=== PATIENT | female | born 1970 | race Caucasian/White ===

== ENCOUNTER 2019-06-19 07:37 | Day surgery (SDC) | payer BC ==
[~2019-06-19 07:37] MED LIST: Lactated Ringers 1,000 ML IV SCH; Lidocaine 1%/Sod Bicarbonate in NS 8.4% 1 ML Syringe IDERM PRN; Sodium Chloride 0.9% 10 ML Syringe FLUSH PRN
--- NOTE | 2019-06-19 08:27 | PCM.PREANE ---
Preanesthetic Assessment - Procedure Proposed Procedure: Colonoscopy - Anesthesia/Transfusion/Family Hx Anesthesia History: Prior Anesthesia Without Reaction Family History of Anesthesia Reaction: No Transfusion History: No Prior Transfusion(s) - Review of Systems General: No Symptoms Pulmonary: No Symptoms Cardiovascular: No Symptoms Gastrointestinal: No Symptoms Neurological: No Symptoms Other: Reports: None - Physical Assessment NPO Status Date: 06/18/19 NPO Status Time: 00:00 Height: 1.63 m Weight: 74.1 kg ASA Class: 1 Mental Status: Alert & Oriented x3 Airway Class: Mallampati = 1 Dentition: Reports: Normal Dentition Thyro-Mental Finger Breadths: 3 Mouth Opening Finger Breadths: 3 ROM/Head Extension: Full Lungs: Clear to Auscultation, Normal Respiratory Effort Cardiovascular: Regular Rate, Regular Rhythm - Allergies Allergies/Adverse Reactions: Allergies Allergy/AdvReac Type Severity Reaction Status Date / Time No Known Allergies Allergy Verified 06/16/19 10:18 - Blood Blood Available: No Product(s) Available: None - Anesthesia Plan Pre-Op Medication Ordered: None - Acknowledgements Anesthesia Type Planned: MAC Pt an Appropriate Candidate for the Planned Anesthesia: Yes Alternatives and Risks of Anesthesia Discussed w Pt/Guardian: Yes Pt/Guardian Understands and Agrees with Anesthesia Plan: Yes PreAnesthesia Questionnaire HEENT History: Reports: Impaired Vision Cardiovascular History: Reports: Other (See Below) Other Cardiovascular History: peripheral vascular insufficiency Respiratory History: Reports: None Gastrointestinal History: Reports: Other (See Below) Other Gastrointestinal History: anal fissure, colitis, constipation Genitourinary History: Reports: Urinary Incontinence 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 (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) Other OB/BYN History: perimenopausal vasomotor symptoms Musculoskeletal History: Reports: None Neurological History: Reports: None Psychiatric History: Reports: Anxiety Endocrine/Metabolic History: Reports: None Hematologic History: Reports: None Immunologic History: Reports: None Oncologic (Cancer) History: Reports: None Dermatologic History: Reports: None - Past Surgical History Head Surgeries/Procedures: Reports: None HEENT Surgical History: Reports: LASIK, Naso-Sinus Surgery Cardiovascular Surgical History: Reports: Varicose Respiratory Surgical History: Reports: None GI Surgical History: Reports: Cholecystectomy, Colonoscopy Female Surgical History: Reports: Breast Reduction, Hysterectomy, Tubal Ligation Male Surgical History: Reports: None Endocrine Surgical History: Reports: None Neurological Surgical History: Reports: None Musculoskeletal Surgical History: Reports: None Oncologic Surgical History: Reports: None Dermatological Surgical History: Reports: None - SUBSTANCE USE Smoking Status *Q: Never Smoker Tobacco Use Within Last Twelve Months: No Second Hand Smoke Exposure: No Days Per Week of Alcohol Use: 0 Number of Drinks Per Day: 0 Total Drinks Per Week: 0 Recreational Drug Use History: No - HOME MEDS Home Medications: Home Meds Docusate Sodium [Colace] 200 mg PO DAILY 06/16/19 [History] Fish Oil/[place]-3 Fatty Acids [Fish Oil 1,000 MG] 1 gm PO DAILY 06/16/19 [History ] Lactobacillus Combination No.4 [Probiotic] 1 cap PO DAILY 06/16/19 [History] Lifitegrast [Xiidra] 1 drop EYEBOTH BID 06/16/19 [History] Magnesium Citrate 300 mg PO DAILY 06/16/19 [History] Multivit-Min/FA/Lycopen/Lutein [Certavite Sr-Antioxidant Tab] 1 tab PO DAILY [History] Tolterodine Tartrate [Tolterodine Tartrate ER] 4 mg PO DAILY 06/16/19 [History] - CURRENT (IN HOUSE) MEDS Current Meds: Current Medications Lactated Ringer's (Ringers, Lactated) 1,000 mls @ 125 mls/hr IV ASDIRECTED CELIO Stop: 06/19/19 23:00 Lidocaine/Sodium Bicarbonate (Buffered Lidocaine 1% In Ns 8.4%) 0.25 ml IDERM ONETIME PRN PRN Reason: Prior to IV Start Stop: 06/19/19 18:00 Sodium Chloride (Saline Flush) 10 ml FLUSH ASDIRECTED PRN PRN Reason: Keep Vein Open Stop: 06/19/19 18:00
[2019-06-19] MEDS ORDERED: Propofol 200 MG/20 ML SDV ONE ×2 (09:05→09:06)
[2019-06-19] MEDS ORDERED: Midazolam 1 MG/ML 2 ML SDV ONE (09:05)
--- NOTE | 2019-06-19 10:00 | PCM48HPAN ---
Post Anesthesia Note - EVALUATION WITHIN 48HRS OF ANESTHETIC Vital Signs in Normal Range: Yes Patient Participated in Evaluation: Yes Respiratory Function Stable: Yes Airway Patent: Yes Cardiovascular Function Stable: Yes Hydration Status Stable: Yes Pain Control Satisfactory: Yes Nausea and Vomiting Control Satisfactory: Yes Mental Status Recovered: Yes Vital Signs: Last Vital Signs Temp 36.8 C 06/19/19 08:15 Pulse 53 L 06/19/19 08:15 Resp 16 06/19/19 08:15 BP 118/81 06/19/19 08:15 Pulse Ox 100 06/19/19 08:15
--- NOTE | 2019-06-19 12:25 | PROC ---
DATE OF OPERATION: 06/19/2019 SURGEON: Dima Wang MD PREOPERATIVE DIAGNOSIS: Need for screening colonoscopy. POSTOPERATIVE DIAGNOSIS: Normal colon. OPERATION PERFORMED: Colonoscopy. ANESTHESIA: Monitored anesthesia care. COMPLICATIONS: None. FINDINGS: Normal colon. INDICATION AND CONSENT: Ms. Napier is a 49-year-old female who presented to clinic for evaluation for screening colonoscopy based on age. She has average risk for colon cancer. She has a maternal grandfather who had colon cancer above age 60, so due to her age, we offered her a screening colonoscopy. The patient agreed to proceed with the procedure. We discussed risks, benefits, and alternatives. Risks discussed include but not limited to perforation and bleeding. The patient understood and agreed to proceed with procedure. Informed consent was obtained. DESCRIPTION OF PROCEDURE: The patient was taken to the procedure room, placed in left lateral decubitus position. Following induction of monitored anesthesia care, time-out was performed and colonoscopy was begun. We began with performing a perianal exam. There were some skin tags, but no fissures, no hemorrhoids. Then, the digital rectal exam was performed which was likewise normal. Then, a colonoscopy was inserted and taken all the way to the cecum. The appendiceal orifice as well as the ileocecal valve were photographed. Then, the scope was slowly and carefully withdrawn examining the entirety of the colonic wall. Prep was excellent in this case and we examined the entirety of the colonic wall. There were no lesions or polyps. There was no diverticulosis. Upon retroflexion of the rectum, there were no significant internal hemorrhoids. Then, air was suctioned from the colon and the colonoscope was withdrawn. There were no immediate complications. The patient will follow up with her primary care. Recommendation is for her to undergo another screening colonoscopy in 10 years based on this exam. MMODAL /[id number] ROBB
== END 2019-06-19 11:00 | disposition home or self-care (01) ==
LOC: JD.SDS 07:37
PROVIDERS: ATTEND Surgery
DX: Z12.11 Encounter for screening for malignant neoplasm of colon (principal); K64.4 Residual hemorrhoidal skin tags; Z80.0 Family history of malignant neoplasm of digestive organs; Z90.49 Acquired absence of other specified parts of digestive tract
CPT/HCPCS: 45378; J2250; J2704; J7120; 00812

== ENCOUNTER 2019-11-24 08:35 | Day surgery (SDC) | payer BC ==
--- NOTE | 2019-11-24 09:02 | PCM.PREANE ---
Preanesthetic Assessment - Anesthesia/Transfusion/Family Hx Anesthesia History: Prior Anesthesia Without Reaction Family History of Anesthesia Reaction: No Transfusion History: No Prior Transfusion(s) Intubation History: Unknown - Review of Systems General: No Symptoms Pulmonary: No Symptoms (Former smoker: quit 18 years ago.) Cardiovascular: No Symptoms, Chest Pain (tightness with anxiety) Gastrointestinal: No Symptoms, Constipation Neurological: No Symptoms (Vertigo once ten years ago. (No history of PONV)) Other: Reports: Easy Bruising, Sinus Problem (rhinitis- environmental), Depression, Anxiety - Physical Assessment NPO Status Date: 11/23/19 NPO Status Time: 22:30 Vital Signs: HR: 50 BP: 125/77 Resp: 16 Temp: 98.9 Sat: 100% Height: 1.63 m Weight: 77 kg ASA Class: 1 Mental Status: Alert & Oriented x3 Airway Class: Mallampati = 2 Dentition: Reports: Normal Dentition, [place](s), [place] Thyro-Mental Finger Breadths: 3 Mouth Opening Finger Breadths: 3 ROM/Head Extension: Full Lungs: Clear to Auscultation, Normal Respiratory Effort Cardiovascular: Regular Rate, Regular Rhythm, No Murmurs - Lab Values: Laboratory Last Values WBC Cancelled 11/21/19 14:43 Corrected WBC Cancelled 11/21/19 14:43 RBC Cancelled 11/21/19 14:43 Hgb Cancelled 11/21/19 14:43 Hct Cancelled 11/21/19 14:43 MCV Cancelled 11/21/19 14:43 MCH Cancelled 11/21/19 14:43 MCHC Cancelled 11/21/19 14:43 RDW Std Deviation Cancelled 11/21/19 14:43 Plt Count Cancelled 11/21/19 14:43 MPV Cancelled 11/21/19 14:43 Neut % (Auto) Cancelled 11/21/19 14:43 Lymph % (Auto) Cancelled 11/21/19 14:43 [place] % (Auto) Cancelled 11/21/19 14:43 Eos % (Auto) Cancelled 11/21/19 14:43 Baso % (Auto) Cancelled 11/21/19 14:43 Neut # (Auto) Cancelled 11/21/19 14:43 Lymph # (Auto) Cancelled 11/21/19 14:43 [place] # (Auto) Cancelled 11/21/19 14:43 Eos # (Auto) Cancelled 11/21/19 14:43 Baso # (Auto) Cancelled 11/21/19 14:43 Manual Slide Review Cancelled 11/21/19 14:43 Urine Color Cancelled 11/21/19 14:43 Urine Appearance Cancelled 11/21/19 14:43 Urine pH Cancelled 11/21/19 14:43 Ur Specific [place] Cancelled 11/21/19 14:43 Urine Protein Cancelled 11/21/19 14:43 Urine Glucose (UA) Cancelled 11/21/19 14:43 Urine Ketones Cancelled 11/21/19 14:43 Urine Occult Blood Cancelled 11/21/19 14:43 Urine Nitrite Cancelled 11/21/19 14:43 Urine Bilirubin Cancelled 11/21/19 14:43 Urine Urobilinogen Cancelled 11/21/19 14:43 Ur Leukocyte Esterase Cancelled 11/21/19 14:43 SARS Virus RNA (PCR) Cancelled 11/22/19 16:37 All labs reviewed and noted and within acceptable ranges to proceed with scheduled procedure. - Allergies Allergies/Adverse Reactions: Allergies Allergy/AdvReac Type Severity Reaction Status Date / Time No Known Allergies Allergy Verified 06/16/19 10:18 - Anesthesia Plan Pre-Op Medication Ordered: None - Acknowledgements Anesthesia Type Planned: General Anesthesia Pt an Appropriate Candidate for the Planned Anesthesia: Yes Alternatives and Risks of Anesthesia Discussed w Pt/Guardian: Yes Pt/Guardian Understands and Agrees with Anesthesia Plan: Yes PreAnesthesia Questionnaire HEENT History: Reports: Impaired Vision Cardiovascular History: Reports: Other (See Below) Other Cardiovascular History: peripheral vascular insufficiency Respiratory History: Reports: None Gastrointestinal History: Reports: Other (See Below) Other Gastrointestinal History: anal fissure, colitis, constipation Genitourinary History: Reports: Urinary Incontinence 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) Other OB/BYN History: perimenopausal vasomotor symptoms Musculoskeletal History: Reports: None Neurological History: Reports: None Psychiatric History: Reports: Anxiety Endocrine/Metabolic History: Reports: None Hematologic History: Reports: None Immunologic History: Reports: None Oncologic (Cancer) History: Reports: None Dermatologic History: Reports: None - Past Surgical History Head Surgeries/Procedures: Reports: None HEENT Surgical History: Reports: LASIK, Naso-Sinus Surgery Cardiovascular Surgical History: Reports: Varicose Respiratory Surgical History: Reports: None GI Surgical History: Reports: Cholecystectomy, Colonoscopy Female Surgical History: Reports: Breast Reduction, Hysterectomy, Tubal Ligation Male Surgical History: Reports: None Endocrine Surgical History: Reports: None Neurological Surgical History: Reports: None Musculoskeletal Surgical History: Reports: None Oncologic Surgical History: Reports: None Dermatological Surgical History: Reports: None - HOME MEDS Home Medications: Home Meds Docusate Sodium [Colace] 200 mg PO DAILY 06/16/19 [History] Fish Oil/[place]-3 Fatty Acids [Fish Oil 1,000 MG] 1 gm PO DAILY 06/16/19 [History ] Lactobacillus Combination No.4 [Probiotic] 1 cap PO DAILY 06/16/19 [History] Lifitegrast [Xiidra] 1 drop EYEBOTH BID 06/16/19 [History] Magnesium Citrate 300 mg PO DAILY 06/16/19 [History] Multivit-Min/FA/Lycopen/Lutein [Certavite Sr-Antioxidant Tab] 1 tab PO DAILY [History] Tolterodine Tartrate [Tolterodine Tartrate ER] 4 mg PO DAILY 06/16/19 [History] - CURRENT (IN HOUSE) MEDS Current Meds: Current Medications Lactated Ringer's (Ringers, Lactated) 1,000 mls @ 125 mls/hr IV ASDIRECTED CELIO Stop: 11/24/19 23:00 Lidocaine/Sodium Bicarbonate (Buffered Lidocaine 1% In Ns 8.4%) 0.25 ml IDERM ONETIME PRN PRN Reason: Prior to IV Start Stop: 11/24/19 18:00 Sodium Chloride (Saline Flush) 10 ml FLUSH ASDIRECTED PRN PRN Reason: Keep Vein Open Stop: 11/24/19 18:00
[2019-11-24] MEDS ORDERED: Rocuronium 50 MG/5 ML Vial ONE (09:06)
[2019-11-24] MEDS ORDERED: Dexamethasone 4 MG/ML 5 ML MDV ONE (09:06)
[2019-11-24] MEDS ORDERED: Ondansetron 4 MG/2 ML SDV ONE (09:06)
[2019-11-24] MEDS ORDERED: Propofol 200 MG/20 ML SDV ONE (09:06)
[2019-11-24] MEDS ORDERED: Midazolam 1 MG/ML 2 ML SDV ONE (09:07)
[2019-11-24] MEDS ORDERED: fentaNYL 250 MCG/5 ML SDV ONE (09:07)
[2019-11-24] MEDS ORDERED: Ketorolac 30 MG/ML SDV ONE (09:07)
[2019-11-24] MEDS ORDERED: Lidocaine 1% with EPINEPHrine 1:100,000 20 ML MDV ONE (09:36)
[2019-11-24] MEDS ORDERED: Sodium Chloride 0.9% 50 ML SDV ONE (09:36)
[2019-11-24] MEDS ORDERED: ePHEDrine Sulfate/0.9% NaCl/Pf 25 MG/5 ML SYRINGE IV ONE (10:13)
[2019-11-24] MEDS ORDERED: ceFAZolin 1 GM Vial ONE (10:40)
[2019-11-24] MEDS ORDERED: Morphine 10 MG/ML SDV ONE (11:00)
--- NOTE | 2019-11-24 11:45 | PCM.OPNOTE ---
- General Post-Op/Procedure Note Date of Surgery/Procedure: 11/24/19 Operative Procedure(s): Anterior and posterior vaginal repair with perineoplasty , subfascial mid-urethral sling procedure Findings: Grade 2 cystocele, grade 3 rectocele, cervix and uterus surgically absent. Vaginal cuff reasonably well supported. Patient has history of stress incontinence confirmed clinically and by history and preop evaluation. Pre Op Diagnosis: 1. Grade 2 cystocele. 2. Grade 3 rectocele. 3. 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 Fluid Replacement, Intraop: 1,400 Output, Urine Amount: 250 EBL in mLs: 20 Drain/Tube Comments:: Red rubber catheter used during the case to drain and to refill the bladder. Complications: None Condition: Good Free Text/Narrative:: Surgery duration: 48 minutes Procedure: The patient was appropriately consented for the procedure proposed. She was then taken to the operating room and placed in a supine position on the operating table. She received 2 g of Ancef preoperatively for infection prophylaxis. She had sequential compression stockings in place for DVT prophylaxis. Patient was administered general endotracheal anesthesia. She was placed in a dorsal lithotomy position and prepped and draped in the usual fashion. Anterior vaginal repair was performed. Weighted speculum was placed in the vagina and the uppermost portion of the cystocele was identified. Two Allis clamps was placed at that uppermost point at a position approximately 1-1/2 cm lateral to the midline A second Allis clamp was placed approximately 2 cm from the urethral meatus. The areas and infiltrated with lidocaine quarter percent with epinephrine. Approximately 8 mL was used. The 2 lateral Allis clamps were retracted and an epithelial incision was made between the 2 clamps. A midline incision was then made with a Metzenbaum scissors. The overlying epithelium was then dissected off of the underlying vesicovaginal fascia. This all to lateral which when approximately midline was felt to be adequate to reduce the cystocele. When this was done approximately 3 trapezoidal shaped sutures of 0 Monocryl were then placed reapproximating the lateral supportive tissue midline and reducing the cystocele. At this point the excess epithelium bilaterally was removed and the epithelium was closed in a running fashion with 1 short segments to decrease likelihood of shortening of the vagina. Her bladder was drained with a red rubber catheter. 250 cc Normal urine was removed. The epithelium overlying the urethra was grasped approximately 1 cm from the urethral meatus and approximately 2 cm cephalad from there with Allis clamps. The area of the skin overlying the medial aspect of the obturator foramen on each side just posterior to the origin the abductor longus muscle was marked with a marking pen. These 2 areas and the sub-fascial layer of the vaginal were then infiltrated with lidocaine quarter percent with epinephrine total of approximately 10 mL was used. incisions made in the epithelium overlying the urethra and 2 small stab wounds 3 mm in length were made in the 2 areas of the panty line of the patient. The subfascial planes and adequately dissected bilaterally to allow placement of the mesh. The helical adapter was then placed through the obturator on patient's left side brought out through the vaginal subfascial plane. Mesh was attached to it and then was pulled back through the obturator foramen. Same was done on the right side. Mesh was then snugged up to the urethra. Dilator 15 mm in diameter was used as a spacer to place the mesh in a tension-free position. At this point the mesh was cut off at the skin surface and the dilator was removed. The midline epithelium was closed with a short running suture of 3-0 Monocryl. Rectocele was then performed. The uppermost portion of the rectocele was identified and was grasped midline with an Allis clamp. The introital area was grasped at approximately the 5:00 and 7:00 positions at the junction of the vaginal and vulvar epithelium. The area of epithelium was then infiltrated with lidocaine quarter percent with epinephrine. A alvin-shaped piece of epithelium was removed from the posterior introital and perineal area. The vaginal epithelium was then undermined superiorly to the top of the rectocele. Was then incised midline. With sharp and blunt dissection the epithelium was then dissected off of the underlying vesicovaginal fascia. At this point approximately 5 sutures of 0 Monocryl were placed to reapproximate the lateral supportive tissue midline and reduce the rectocele. The excess epithelium was then excised and the epithelium overlying the rectocele repair was then reapproximated with a running suture of 3-0 Monocryl. Perineoplasty was then performed with approximately 4 V-shaped stitches of 0 Monocryl in placed to reapproximate the lateral tissue midline, rebuild the perineum about 1 cm and the vagina approximately 1 cm. The epithelium of the introitus and perineal body was then reapproximated using 3-0 Monocryl in an episiotomy repair fashion. At this time sponge, instrument and needle counts were correct. Skin incisions used for placement of the subfascial, mid-urethral mesh were closed with Dermabond skin glue. The patient is bladder was filled with approximately 240 cc of normal saline to facilitate voiding and therefore discharge home. The patient was returned to supine position, awakened from general endotracheal anesthesia and was discharged from operating room in good condition
[2019-11-24] MEDS ORDERED: fentaNYL 100 MCG/2 ML SDV IVPUSH PRN (12:04)
[2019-11-24] MEDS ORDERED: HYDROmorphone 0.5 MG/0.5 ML Syringe IVPUSH PRN (12:04)
[2019-11-24] MEDS ORDERED: Ondansetron 4 MG/2 ML SDV IVPUSH PRN (12:04)
--- NOTE | 2019-11-24 12:06 | PCM.POSTAN ---
POST ANESTHESIA ASSESSMENT - MENTAL STATUS Mental Status: Oriented, Somnolent - VITAL SIGNS Vital Signs: Last Vital Signs Temp 37.2 C 11/24/19 08:35 Pulse 50 L 11/24/19 08:35 Resp 16 11/24/19 08:35 BP 125/77 11/24/19 08:35 Pulse Ox 100 11/24/19 08:35 - RESPIRATORY Respiratory Status: Respiratory Rate WNL, Airway Patent, O2 Saturation Stable - CARDIOVASCULAR CV Status: Pulse Rate WNL, Blood Pressure Stable - GASTROINTESTINAL GI Status: No Symptoms - POST OP HYDRATION Hydration Status: Adequate & Stable - OBSERVATIONS Free Text/Narrative:: Routine extubation with transfer to PACU. VSS, SV, PARMAR, FAC, CTAB. No concerns at this time. Dr. Rosario to follow-up with cardiology consult PRN.
--- NOTE | 2019-11-24 12:22 | PCM48HPAN ---
Post Anesthesia Note - EVALUATION WITHIN 48HRS OF ANESTHETIC Vital Signs in Normal Range: Yes Patient Participated in Evaluation: No Respiratory Function Stable: Yes Airway Patent: Yes Cardiovascular Function Stable: Yes Hydration Status Stable: Yes Pain Control Satisfactory: Yes Nausea and Vomiting Control Satisfactory: Yes Mental Status Recovered: Yes Vital Signs: Last Vital Signs Temp 36.8 C 11/24/19 11:46 Pulse 107 H 11/24/19 11:46 Resp 12 11/24/19 11:46 BP 136/79 11/24/19 11:46 Pulse Ox 99 11/24/19 12:03 - COMMENTS/OBSERVATIONS Free Text/Narrative:: No concerns at this time. Patient recovering without nausea or pain.
== END 2019-11-24 13:50 | disposition home or self-care (01) ==
LOC: JD.SDS 08:35
PROVIDERS: ATTEND Obstetrics & Gynecology
DX: N39.3 Stress incontinence (female) (male) (principal); N32.81 Overactive bladder; N81.10 Cystocele, unspecified; N81.6 Rectocele; F41.9 Anxiety disorder, unspecified; F32.9 Major depressive disorder, single episode, unspecified; Z87.891 Personal history of nicotine dependence; Z90.710 Acquired absence of both cervix and uterus; Z79.899 Other long term (current) drug therapy
CPT/HCPCS: 57260; 57288; 93005; C1771; J0171; J0690; J1100; J1885; J2001; J2250; J2270; J2405; J2704; J3010; J7120; 00860; 36415; 81003; 85025; U0002